=== PATIENT | female | born 1960 | race Caucasian/White ===

== ENCOUNTER → 2021-01-01 | Outpatient (CLI) | payer OTHER ==
[2021-01-01 11:24] VITALS: BP 137/83; PULSE 74; RESP 16; TEMP 98.3
--- NOTE | 2021-01-01 12:04 | P.GSHP ---
History of Present Illness H&P Date: 01/01/21 Chief Complaint: abnormal right breast implant Codie is a 60 year old white female seen in consultation for Dr. Foss regarding right breast implant capsule. She has a history of a right breast lumpectomy in 2009. She was told she had a stage I disease. She did not have any chemotherapy, or hormonal therapy. She did have radiation therapy. Her surgery was done in [place]. She also had some fat grafting done on the right breast. She had genetic testing done which was negative. Following the surgery she had an implant placed on the right side and a lift on the left to make the breasts were symmetrical. Sensory that time the area of the implant on the r ight seems to be contracted and hard. She states that the left breast and right breast are not symmetric. After the initial surgery on the left breast she did have an additional procedure was an implant was placed on the left side as well. The patient states at this time the implant is higher than on the right side. Her breasts are not symmetric. The implants were placed in [place]. This is the first that she is following for her breast cancer since she moved to [place]. She has been in [place] for less than a year. She can't tell if she has any new lumps masses or nodules in her breast. Abnormal feeling related to the implants. She is not complaining of any nipple discharge or skin changes. She has not had any recent trauma or infection in the breast. She had a bilateral mammogram performed on 1020 [id number] which was BIRADS 2. Caffeine: 1 cup of coffee in am nicotine: none chocolate: daily Family history: mother: cervical cancer, pancreatic cancer father: lung and liver cancer brother: colon cancer Hormonal History: Menarche: 13 breast fed: 1, age at first : 20 menopause: 50 BCP: 30 years hormones: none Surgical history: Multiple breast surgeries as noted above right breast cancer stage I foot left tonsil Medical History: Osteopenia Social history: Nicotine: Negative; never smoker Alcohol: Social/ weekly Drugs: Negative - Constitutional Constitutional: Denies chills, Denies fever - EENT Eyes: denies blurred vision, denies pain Ears: deny: decreased hearing, tinnitus Ears, nose, mouth and throat: Denies headache, Denies sore throat - Breasts Breasts: bilateral: as per HPI - Cardiovascular Cardiovascular: Denies chest pain, Denies shortness of breath - Respiratory Respiratory: Denies cough, Denies 7 - Gastrointestinal Gastrointestinal: Denies abdominal pain, Denies diarrhea, Denies nausea, Denies vomiting - Genitourinary (Female) Genitourinary: Denies dysuria, Denies hematuria - Menstruation Menstruation: Reports postmenopausal - Musculoskeletal Musculoskeletal: Denies myalgias - Integumentary Integumentary: Denies pruritus, Denies rash - Neurological Comment: pain mid portion of the left hand - Psychiatric Psychiatric: Denies anxiety, Denies depression - Endocrine Endocrine: Denies fatigue, Denies weight change - Hematologic/Lymphatic Comment: none - Allergic/Immunologic Allergic/Immunologic: Reports as per HPI Past Medical History History of Any Multi-Drug Resistant Organisms: None Reported Smoking Status: Never smoker Medications and Allergies Home Medications Medication Instructions Recorded Confirmed Type Calcium Carbonate/Vitamin D3 1 each PO DAILY 01/01/21 01/01/21 History [Calcium 250-D Tablet] Allergies Allergy/AdvReac Type Severity Reaction Status Date / Time bee venom protein (honey bee) Allergy Anaphylaxis Unverified 01/01/21 11:20 cephalexin [From Keflex] Allergy Rash/Hives Unverified 01/01/21 11:20 Sulfa (Sulfonamide Allergy Rash/Hives Unverified 01/01/21 11:20 Antibiotics) Surgical - Exam Vital Signs Temp Pulse Resp BP Pulse Ox 98.3 F 74 16 137/83 97 01/01/21 11:20 01/01/21 11:20 01/01/21 11:20 01/01/21 11:20 01/01/21 11:20 BMI 27.9 - General well developed, well nourished, no distress - Eyes normal ocular movement - ENT normal pinna, normal nares - Neck no masses, trachea midline - Respiratory normal expansion, normal respiratory effort, clear to auscultation - Cardiovascular Rhythm: regular - Integumentary normal turgor - Neurologic no disoriented, no combative - Musculoskeletal normal gait - Psychiatric oriented to time, oriented to person, oriented to place, speech is normal, memory intact Breast exam: BRA: 38D inspection: Asymmetry of the breast related to prior surgery and reconstruction right breast is higher than the left breast, left implant is higher than the breast tissue itself Palpation: Right breast: Contraction, no dominant masses or nodules of concern Right axilla: No adenopathy of concern Left breast: Multi-positional exam no dominant masses or nodules of concern implant appears to be higher on the left than on the right Left axilla: No adenopathy of concern Results Mammogram results reviewed Assessment and Plan Assessment: Impression: 1. Patient status post right breast lumpectomy and augmentation following stage I breast cancer 2. No evidence of recurrent breast cancer at this time 3. Asymmetry related to prior breast surgery left breast [place] memory gel implant, right breast [place] memory gel implant 4. Capsular contracture greater on the right than on the left Plan: 1. Appointment with plastic surgery 2. Patient to follow. For surveillance in 1 year 3. After appointment with plastic surgery patient may opt for implant removal and she will recontact us 4. Bilateral mammogram June 2021 with appointment here Cc: Dr. Foss
== END ==
LOC: WWCWWP 10:55
PROVIDERS: ATTEND Surgery
DX: Z08 Encounter for follow-up examination after completed treatment for malignant neoplasm (principal); Z85.3 Personal history of malignant neoplasm of breast; Z98.890 Other specified postprocedural states

== ENCOUNTER → 2021-02-26 | Outpatient (CLI) | payer OTHER ==
--- NOTE | 2021-02-26 11:53 | US ---
EXAMINATION TYPE: US abdomen limited DATE OF EXAM: 02/26/2021 COMPARISON: NONE CLINICAL HISTORY: R10.12Left upper quadrant pain, R10.12. patient has been exercising and felt the LOTTIE Q had a lump when compared to the right. No pain, no "bulging" Assess for hernia at location of: LUQ Soft tissue scan of LUQ, subcostal, produces no obvious abnormality with and without the valsalva man euver IMPRESSION: No definite sonographic evidence for hernia. Real-time scanning was performed by the letter of credit document examiner utilizing Valsalva and additional dynamic maneuve rs to assess for hernia. Images of the contralateral side were also acquired for direct comparison.
== END | disposition home or self-care (01) ==
LOC: RADUSWWP 10:20
PROVIDERS: ATTEND Family Medicine
DX: R10.12 Left upper quadrant pain (principal)
CPT/HCPCS: 76705

== ENCOUNTER → 2021-10-21 | Outpatient (CLI) | payer OTHER ==
--- NOTE | 2021-10-22 12:46 | MM ---
Reason for exam: screening (asymptomatic). Last mammogram was performed 1 year and 4 months ago. History: Patient is postmenopausal and has history of breast cancer at age 49. Family history of breast cancer in maternal aunt. Implants in both breasts, 2018. Lumpectomy of the right breast. Radiation therapy of the right breast. Took hormonal contraceptives for 16 years. Physical Findings: A clinical breast exam by your physician is recommended on an annual basis and results should be correlated with mammographic findings. MG Screening Mammo Implant/CAD Bilateral CC, MLO, and ID view(s) were taken. Prior study comparison: July 02, 2020, bilateral MG screening mammo implant/CAD. July 20, 2017, mammogram. The breast tissue is heterogeneously dense. This may lower the sensitivity of mammography. Stable benign calcifications. Bilateral implants are intact. No significant changes when compared with prior studies. ASSESSMENT: Benign, BI-RAD 2 RECOMMENDATION: Routine screening mammogram of both breasts in 1 year.
== END | disposition home or self-care (01) ==
LOC: RADMAMWWP 07-05 08:54
PROVIDERS: ATTEND Surgery
DX: Z12.31 Encounter for screening mammogram for malignant neoplasm of breast (principal); Z78.0 Asymptomatic menopausal state; Z80.3 Family history of malignant neoplasm of breast
CPT/HCPCS: 77067

== ENCOUNTER → 2023-02-06 | Outpatient (CLI) | payer OTHER ==
--- NOTE | 2023-02-06 10:09 | BD ---
EXAMINATION TYPE: Axial Bone Density DATE OF EXAM: 02/06/2023 CLINICAL HISTORY: 62 years old Female. ICD-10 CODE: M85.80 DISRD OF BONE DENSITY Height: 63 Weight: 163.3 FRAX RISK QUESTIONS: Alcohol (3 or more units per day): no Family History (Parent hip fracture): no Glucocorticoids (More than 3mos): no History of Fracture in Adulthood: Wrist Secondary Osteoporosis: 1. Type 1 Diabetes: no 2. Hyperthyroidism: no 3. Menopause before 45: no 4. Malnutrition: no 5. Chronic liver disease: no Rheumatoid Arthritis: no Current Tobacco Use: no RISK FACTORS HISTORY OF: Hip Fracture (Right/Left): no Spine Fracture: no History of Wrist Fracture: lt wrist When: age 30 Surgery to Spine/Hip(right/left)/Wrist (right/left): no Family History of Osteoporosis: Mother Active: yes Diet low in dairy products/other sources of calcium: yes Postmenopausal woman: yes Take estrogen and/or progesterone medications: no Lost more than 2 inches in height since high school: no Frequent falls: no Poor Health: no Hyperparathyroidism: no Adrenal Insufficiency: no MEDICATIONS: Prednisone or other steroids: no Thyroid Medications: no Osteoporosis Medications: no Additional Medications: none Additional History: Breast Ca. with radiation 2009 EXAM MEASUREMENTS: Bone mineral densitometry was performed using the Progeniq System. Bone mineral density as measured about the Lumbar spine is: ----- L1-L4(G/cm2): 0.816 T Score Values are as follows: ----- L1: -3.2 ----- L2: -3.5 ----- L3: -3.0 ----- L4: -2.6 ----- L1-L4: -3.0 Z Score Values are as follows: ----- L1: -2.1 ----- L2: -2.4 ----- L3: -1.9 ----- L4: -1.5 ----- L1-L4: -1.9 Baseline Study Bone mineral density about the R hip (g/cm2): 0.907 Bone mineral density about the L hip (g/cm2): 0.859 T Score values are as follows: -----R Neck: -1.1 -----L Neck: -1.6 -----R Total: -0.8 -----L Total: -1.2 Z Score values are as follows: -----R Neck: 0.1 -----L Neck: -0.4 -----R Total: 0.0 -----L Total: -0.3 Baseline Study FRAX%s: The graph provided illustrates a 14.5 % chance for a major osteoporotic fx and a 1.5% chance for the hips probability for fx in 10 years time. IMPRESSION: Osteoporosis (T Score less than -2.5). There is increased fracture risk and therapy is usually indicated based on age. Re-Screen 1-2 years. NOTE: T-SCORE=SD OF THE YOUNG ADULT MEAN.
== END | disposition home or self-care (01) ==
LOC: RADBDWWP 08:36
PROVIDERS: ATTEND Family Medicine
DX: M81.0 Age-related osteoporosis without current pathological fracture (principal); M85.89 Other specified disorders of bone density and structure, multiple sites; Z78.0 Asymptomatic menopausal state
CPT/HCPCS: 77080

== ENCOUNTER → 2023-05-15 | Outpatient (CLI) | payer OTHER ==
--- NOTE | 2023-05-15 11:34 | MM ---
Reason for Exam: Follow-up at short interval from prior study. Last screening mammogram was performed 6 month(s) ago. Patient History: Menarche at age 13. First Full-Term at age 20. Postmenopausal. Patient has history of breast feeding. Breast cancer, right, age 49. Patient used Hormonal Contraceptives for 16 years. 2009, Lumpectomy on the Right side. Lumpectomy on the Right side. 2009, Radiation Therapy on the right side. 01/02/2022, Implant Removal on the right side. Radiation Therapy, right. 01/02/2022, Implant on the right side. 2018, Bilateral Implants. Maternal aunt had breast cancer, age 65. Tissue Density: The breast tissue is heterogeneously dense. This may lower the sensitivity of mammography. Findings: Analyzed By CAD. Bilateral implants are noted. Radiopaque density adjacent to the right breast implant may reflect calcification or free silicone. There is no change relative to the prior study. No evidence for suspicious cluster of microcalcifications. Right breast clips noted. No evidence for mass. Overall Assessment: Benign, BI-RAD 2 Management: Diagnostic Mammogram of both breasts in 1 year. . Results were given to the patient verbally at the time of exam. Patient should continue monthly self-breast exams. A clinical breast exam by your physician is recommended on an annual basis. This exam should not preclude additional follow-up of suspicious palpable abnormalities. Note on Meri scores and lifetime risk: 1. A Meri score greater than 3% is considered moderate risk. If this is the case, consider specialist referral to assess eligibility for a risk reducing agent. 2. If overall lifetime risk for the development of breast cancer is 20% or higher, the patient may qualify for future screening with alternating mammogram and breast MRI. Electronically signed and approved by: Jeffrey Byrne M.D. Radiologis
== END | disposition home or self-care (01) ==
LOC: RADMAMWWP 08:15
PROVIDERS: ATTEND Family Medicine
DX: Z85.3 Personal history of malignant neoplasm of breast (principal); Z98.82 Breast implant status; Z78.0 Asymptomatic menopausal state; Z80.3 Family history of malignant neoplasm of breast
CPT/HCPCS: 77066; G0279; 77062

== ENCOUNTER → 2024-05-31 | Outpatient (CLI) | payer OTHER ==
--- NOTE | 2024-06-02 14:28 | MM ---
Reason for Exam: Screening (asymptomatic). Last screening mammogram was performed 12 month(s) ago. Patient History: Menarche at age 13. First Full-Term at age 20. Postmenopausal. Patient has history of breast feeding. Breast cancer, right, age 49. Patient used Hormonal Contraceptives for 16 years. 2009, Lumpectomy on the Right side. Lumpectomy on the Right side. 2009, Radiation Therapy on the right side. 01/02/2022, Implant Removal on the right side. Radiation Therapy, right. 01/02/2022, Implant on the right side. 2018, Bilateral Implants. Maternal aunt had breast cancer, age 65. Prior Study Comparison: 10/21/2021 Bilateral Screening Mammogram, [facility]. 11/10/2022 Bilateral MG 3D screen mammo imp/cad., [facility]. 05/15/2023 Bilateral MG 3D diag mammo w/cad [facility], [facility]. Tissue Density: There are scattered areas of fibroglandular density. Findings: Analyzed By CAD. The pattern is symmetrical. Bilateral breast prostheses are present. No significant interval change is evident. There appears to be some post surgical change inferior right breast. Suspicious changes are No suspicious groups of microcalcifications, spiculated or lobular masses, architectural distortion or other secondary signs of malignancy are mammographically apparent. Overall Assessment: Benign, BI-RAD 2 Management: Screening Mammogram of both breasts in 1 year. A negative mammogram report should not preclude additional follow up of suspicious palpable abnormalities. Patient should continue monthly self breast exam. A clinical breast exam by your physician is recommended on an annual basis and results should be correlated with mammographic findings. Note on Meri scores and lifetime risk: 1. A Meri score greater than 3% is considered moderate risk. If this is the case, consider specialist referral to assess eligibility for a risk reducing agent. 2. If overall lifetime risk for the development of breast cancer is 20% or higher, the patient may qualify for future screening with alternating mammogram and breast MRI. [facility], , 06/02/2024 2:24 PM. Electronically signed and approved by: Darek Benavides D.O. Radiologis
== END | disposition home or self-care (01) ==
LOC: RADMAMWWP 07:33
PROVIDERS: ATTEND Family Medicine
DX: Z12.31 Encounter for screening mammogram for malignant neoplasm of breast
CPT/HCPCS: 77063; 77067